=== PATIENT | male | born 1995 | race Caucasian/White ===

== ENCOUNTER 2017-03-11 16:57 | Emergency (ER) | payer BC ==
[~2017-03-11] VITALS: Ht 188 cm; Wt 175.0 kg
== END 2017-03-11 19:09 | disposition home or self-care (01) ==
LOC: ED 16:57
PROC: 2W38X1Z Immobilization of Right Upper Extremity using Splint (ICD-10-PCS; principal; 2017-03-11)
DX: S63.501A Unspecified sprain of right wrist, initial encounter (principal); W22.01XA Walked into wall, initial encounter; Y93.64 Activity, baseball
CPT/HCPCS: 29125; 73110; 99283